=== PATIENT | male | born 1955 | race Caucasian/White ===

== ENCOUNTER → 2016-06-24 07:31 | Day surgery (SDC) | payer MEDICARE, MEDICAID ==
--- NOTE | 2016-06-11 07:20 | HP ---
HISTORY AND PHYSICAL: DATE OF PLANNED ADMISSION AND SURGERY: 06/24/16 - [facility] HISTORY OF PRESENT ILLNESS: Mr. Lino is a 61-year-old white male who is admitted with a left renal calculus and recent placement of a left ureteral stent for shockwave lithotripsy of the left renal calculus and possible removal of the left ureteral stent. Please refer to the detailed history and physical for his earlier admission of 06/05/16. At that time patient presented with symptoms of left renal colic secondary to an 8 mm calculus in the mid to distal left ureter. He was taken to the operating room and had a left ureteroscopy. During the procedure, the calculus migrated into the lower pole calyx of the kidney. A stent was placed. Postoperative KUB showed the stent in good position and the calculus in the lower pole calyx of the left kidney. The patient is now admitted for shockwave lithotripsy of the left renal calculus and if good fragmentation of the stone is noted, for removal of the left ureteral stent. There have not been changes in his medical condition or his medications or his physical exam. He was, however, asked to discontinue the Plavix one week prior to the procedure. I discussed the above plans in detail with the patient and all his questions were answered. [id number]/[facility] #: [id number] SHAHRIAR
[~2016-06-24 07:31] MED LIST: Buffered Lidocaine 1% SYR 3ML* 3 ML/SYR SYRINGE INTRADERM ONE; DiMENhydriNATE IV* 50 MG/ML VIAL IV PUSH PRN; Lidocaine 2% MPF* 2 ML VIAL ONE; Propofol* 10 MG/ML 20 ML BTL IV PUSH ONE; cefTRIAXone(*) 2 GM ADDV.VIAL IVPB ONE; fentaNYL* 50 MCG/ML 2 ML VIAL (100 MCG VIAL) IV PRN; fentaNYL* 50 MCG/ML 2 ML VIAL (100 MCG VIAL) ONE
--- NOTE | 2016-06-24 08:11 | RAD ---
INDICATION: Shockwave lithotripsy. COMPARISON: Comparison is made with a prior CT of the abdomen and pelvis from June 04, 2016 and a prior KUB series from June 05, 2016. TECHNIQUE: Frontal supine films of the abdomen were obtained. FINDINGS: The small bowel and colon appear nondistended. There is a double-J stent catheter present on the left side. There is a 7 mm calcification adjacent to the proximal portion of the double-J stent catheter which was previously located in the lower pole of the left kidney. IMPRESSION: THERE IS A 7 MM CALCULUS ADJACENT TO THE PROXIMAL PORTION OF THE DOUBLE-J STENT CATHETER LIKELY AT THE URETEROPELVIC JUNCTION OR IN THE PROXIMAL LEFT URETER.
[2016-06-24 11:21] VITALS: BP 118/71
--- NOTE | 2016-06-24 23:58 | OP ---
OPERATIVE REPORT: DATE OF OPERATION: 06/24/16 - [facility] DATE OF : 57 SURGEON: Damian Romo MD ANESTHESIOLOGIST: Dr. Han Winters. ANESTHESIA: General. PRE-OP DIAGNOSES: 1. Proximal left ureteral calculus. 2. Status post placement left ureteral stent. POST-OP DIAGNOSES: 1. Proximal left ureteral calculus. 2. Status post placement left ureteral stent. OPERATIVE PROCEDURE: Shockwave lithotripsy of left ureteral calculus. INDICATION FOR PROCEDURE: Mr. Lino is a 61-year-old white male who was admitted 3 weeks ago with a 1-cm calculus in the distal third of the left ureter. At that time the patient was on Plavix. He underwent left ureteroscopy and during the procedure, the stone migrated into the lower pole calyx of the left kidney. He had placement of left ureteral stent. Now, the patient is admitted for shockwave lithotripsy and stent removal. He has been off the Plavix for more than 1 week. PATHOLOGY: Preoperative KUB showed that the stone had migrated from the kidney into the proximal left ureter about 3 cm distal to the ureteropelvic junction. The stent was in good position. No other abnormal calcifications were noted. DESCRIPTION OF PROCEDURE: After successful general anesthesia, the patient was placed on the shockwave lithotripsy in the supine position. The left renal calculus was visualized in both the PA and the oblique x-ray views and the position of the generator and the patient were adjusted to have the stones in the focus of the shock waves. A total of 2,000 shocks were then delivered at a rate of 90 shocks per minute. The proper positioning of the generator over the stone was monitored periodically. At 2000 shocks, the stone did not seem to have broken. It was decided not to proceed with additional lithotripsy to avoid excessive edema of the ureteral wall. The plan would be to obtain a KUB next week and if the stone still does not seem to have fragmented, the patient will need to be brought back in for ureteroscopy and laser lithotripsy. CC: Nathaniel Ward MD* [id number]/[facility] #: [id number] MTDD
== END | disposition home or self-care (01) ==
LOC: OR 07:31
PROVIDERS: ATTEND Urology
DX: N20.1 Calculus of ureter (principal); Z79.02 Long term (current) use of antithrombotics/antiplatelets; Z79.82 Long term (current) use of aspirin; I25.10 Atherosclerotic heart disease of native coronary artery without angina pectoris; Z95.5 Presence of coronary angioplasty implant and graft; I10 Essential (primary) hypertension; J44.9 Chronic obstructive pulmonary disease, unspecified; F17.210 Nicotine dependence, cigarettes, uncomplicated; K21.9 Gastro-esophageal reflux disease without esophagitis; M19.90 Unspecified osteoarthritis, unspecified site; I25.2 Old myocardial infarction
CPT/HCPCS: 74000; J0696; J2704; J3010

== ENCOUNTER 2016-07-05 15:19 | Emergency (ER) | payer MEDICARE, MEDICAID ==
[2016-07-05] MEDS ORDERED: Ketorolac INJ* 30 MG/ML 1 ML VIAL IV PUSH ONE (16:04)
[2016-07-05] MEDS: NS 0.9% 1000 ML* 2,000 ML IV ONE (16:14)
[2016-07-05 16:27] LABS: Hematocrit 38 % (42-52); Hemoglobin 12.8 g/dl (14.0-18.0); Mean Corpuscular HGB Conc 33 g/dl (31-36); Mean Corpuscular Hemoglobin 29 pg (27-31); Mean Corpuscular Volume 86 fL (80-94); Mean Platelet Volume 10 um3 (7.4-10.4); Red Blood Count 4.45 10^6/ul (4.0-5.4); Red Cell Distribution Width 15 % (10.5-15); White Blood Count 6.3 10^3/ul (3.5-10.8)
[2016-07-05 16:41] LABS: Albumin 3.8 g/dL (3.2-5.2); BUN/Creatinine Ratio 18.6 (8-20); C Reactive Protein 3.12 mg/L (< 5.00); Calcium 8.9 mg/dL (8.6-10.3); EGFR African American 116.7 (>60); EGFR Non-African American 90.7 (>60); Globulin 2.6 g/dL (2-4); Potassium 3.5 mmol/L (3.5-5.0); Total Bilirubin 0.3 mg/dL (0.2-1.0); Total Protein 6.4 g/dL (6.4-8.9)
--- NOTE | 2016-07-05 16:48 | RAD ---
INDICATION: Abdominal pain COMPARISON: KUB July 01, 2016 TECHNIQUE: Erect and supine views of the abdomen are submitted. FINDINGS: Bones: There are no acute bony findings. Soft tissues: The soft tissues appear normal. The psoas margins are sharp. Bowel gas pattern: Normal Calcifications: There is a proximal left ureteral calculus, unchanged. The left ureteral stent appears unchanged. Other: None IMPRESSION: LEFT URETERAL STENT AND LEFT-SIDED URETEROLITHIASIS, UNCHANGED
[2016-07-05] MEDS ORDERED: Magnesium CITRATE* 300 ML BTL PO ONE (17:19)
[2016-07-05] MEDS ORDERED: Polyethylene Glycol 3350* 17 GM PACKET ONE (17:25)
[2016-07-05 18:07] LABS: Budding Yeast Present (Absent); Urine Bacteria Absent (Absent); Urine Bilirubin Negative (Negative); Urine Glucose Negative (Negative); Urine Nitrite Negative (Negative)
[2016-07-05 18:19] VITALS: BP 135/95
--- NOTE | 2016-07-05 19:21 | ED ---
Bonnie Mendez Erika, scribed for Yousuf Yang MD on 07/05/16 at 1601 . GI/ HPI - HPI Summary HPI Summary: Patient is a 61-year-old male presenting to the ED with a CC of burning with urination and increased frequency of urination. Patient has been diagnosed with a left-sided kidney stone, which will be removed by laser on 07/08/[address] Romo. Pt also reports hematuria. Pt denies fevers and chills. Pt does also report he has not had a BM in 4 days, and notes associated RLQ pain. Hx ureteral stent, 2 cardiac stents, 6 C-spine surgeries. Pt smokes, and does not drink. - History of Current Complaint Chief Complaint: EDUrogenitalProblems Time Seen by Provider: 07/05/16 15:57 Stated Complaint: BLOOD IN URINE/KIDNEY PAIN Hx Obtained From: Patient Onset/Duration: Started Days Ago, Atraumatic Severity: Moderate Pain Intensity: 9 Associated Signs and Symptoms: Positive: Constipation, UTI Symptoms. Negative: Fever Aggravating Factor(s): Urination Alleviating Factor(s): Nothing - Additional Pertinent History Primary Care Physician: [id number] - Allergy/Home Medications Allergies/Adverse Reactions: Allergies Allergy/AdvReac Type Severity Reaction Status Date / Time Bee Venom Allergy Swelling Verified 06/24/16 08:18 Of Face,Lips,& Throat PMH/Surg Hx/FS Hx/Imm Hx Endocrine/Hematology History: Denies: Hx Diabetes Cardiovascular History: Reports: Hx Angina - HAS NITRO TABS AVAILABLE, NOT NEEDED TO USE SINCE 2014, Hx Cardiomegaly, Hx Coronary Artery Disease - 2 STENTS , Hx Hypertension - ON MEDS Denies: Hx Hypercholesterolemia, Hx Myocardial Infarction, Hx Pacemaker/ICD, Hx Valvular Heart Disease Comment Only: Other Cardiovascular Problems/Disorders - [employer] SALESPERSON: MILANA KERR Respiratory History: Reports: Hx Asthma - WILL BRING INHALERS, Hx Chronic Obstructive Pulmonary Disease (COPD), Hx Sleep Apnea, Other Respiratory Problems /Disorders - 38 YRS+ SMOKER 1/2-1 PPD. WORKING HARD TO QUIT, NONE TODAY GI History: Reports: Hx Gastroesophageal Reflux Disease, Other GI Disorders - ROSALES'S ESOPHAGUS History: Reports: Hx Kidney Infection - A CHILD, Hx Kidney Stones - SURGERY 06/05/2016 (MANY PAST TIMES) Musculoskeletal History: Reports: Hx Arthritis - ALL OVER, Hx Back Problems, Other Musculoskeletal History - HERNIATED L5/S1, BILATERAL KNEE ISSUES, plate in neck Comment Only: Hx Bursitis - C 3/4 FUSION 2004, RIGHT L5/S1 HERNIATED DISCS Sensory History: Reports: Hx Contacts or Glasses - GLASSES Denies: Hx Cataracts, Hx Glaucoma, Hx Hearing Aid Opthamlomology History: Reports: Hx Contacts or Glasses - GLASSES Denies: Hx Cataracts, Hx Glaucoma Neurological History: Reports: Hx Nerve Disease - 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 CERVICAL FUSION WITH PLATING, 2003, 2004, 2005, 2006, 2014 [facility] HEART STENT, 2006, 08/2015 [facility]. URETURAL STENT 2007 - 4x- LAST 06/05/16 [facility]. LEFT KNEE ARTHROSCOPY, 2012, [facility] Hx Anesthesia Reactions: No Infectious Disease History: No Infectious Disease History: Denies: Hx of Known/Suspected MRSA, Hx Shingles, Hx Tuberculosis, Traveled Outside the [place] in Last 30 Days - Family History Known Family History: Positive: Cardiac Disease - Social History Alcohol Use: None Substance Use Type: Reports: None Hx Tobacco Use: Yes Smoking Status (MU): Heavy Every Day Tobacco Smoker Type: Cigarettes Amount Used/How Often: STATES HE IS DOWN TO 1/2PPD PAST FEW WEEKS, NONE SO FAR TODAY Length of Time of Smoking/Using Tobacco: 38 YRS Have You Smoked in the Last Year: Yes Review of Systems Negative: Fever, Chills Gastrointestinal: Other - No BM in 4 days Positive: burning, frequency, hematuria All Other Systems Reviewed And Are Negative: Yes Physical Exam - Summary Physical Exam Summary: VITAL SIGNS: Reviewed. GENERAL: Patient is a well developed and nourished male who is lying comfortable in the stretcher. Patient is not in any acute respiratory distress. HEAD AND FACE: Normocephalic and atraumatic. EYES: PERRLA, EOMI x 2, No injected conjunctiva. EARS: Hearing grossly intact. Ear canals and tympanic membranes are WNL. MOUTH: Oropharynx within normal limits. NECK: Supple, trachea is midline, no adenopathy, no JVD. CHEST: Symmetric, no tenderness at palpation LUNGS: Clear to auscultation bilaterally. No wheezing or crackles. CVS: RRR,, S1 and S2 present, no murmurs or gallops appreciated. ABDOMEN: Soft, non-tender. No signs of distention. Positive bowel sounds. No rebound no guarding, and no masses palpated. No abdominal bruit or pulsations. EXTREMITIES: FROM in all major joints, no edema, no cyanosis or clubbing. NEURO: Alert and oriented x 3. No acute neurological deficits. Speech is normal. SKIN: Dry and warm Triage Information Reviewed: Yes Vital Signs On Initial Exam: Initial Vitals Temp Pulse Resp BP Pulse Ox 98.1 F 74 16 164/70 99 07/05/16 15:24 07/05/16 15:24 07/05/16 15:24 07/05/16 15:24 07/05/16 15:24 Vital Signs Reviewed: Yes Diagnostics - Vital Signs Vital Signs Temp Pulse Resp BP Pulse Ox 07/05/16 15:24 98.1 F 74 16 164/70 99 - Laboratory Lab Results: Lab Results 07/05/16 07/05/16 07/05/16 Range/Units 16:15 16:15 16:15 WBC 6.3 (3.5-10.8) 10^3/ul RBC 4.45 (4.0-5.4) 10^6/ul Hgb 12.8 L (14.0-18.0) g/dl Hct 38 L (42-52) % MCV 86 (80-94) fL MCH 29 (27-31) pg MCHC 33 (31-36) g/dl RDW 15 (10.5-15) % Plt Count 110 L (150-450) 10^3/ul MPV 10 (7.4-10.4) um3 Neut % (Auto) 51.4 (38-83) % Lymph % (Auto) 36.6 (25-47) % Stan[place]aus % (Auto) 8.0 (1-9) % Eos % (Auto) 3.7 (0-6) % Baso % (Auto) 0.3 (0-2) % Absolute Neuts (auto) 3.2 (1.5-7.7) 10^3/ul Absolute Lymphs (auto) 2.3 (1.0-4.8) 10^3/ul Absolute Monos (auto) 0.5 (0-0.8) 10^3/ul Absolute Eos (auto) 0.2 (0-0.6) 10^3/ul Absolute Basos (auto) 0 (0-0.2) 10^3/ul Absolute Nucleated RBC 0.01 10^3/ul Nucleated RBC % 0.2 Sodium 139 (133-145) mmol/L Potassium 3.5 (3.5-5.0) mmol/L Chloride 107 (101-111) mmol/L Carbon Dioxide 26 (22-32) mmol/L Anion Gap 6 (2-11) mmol/L BUN 16 (6-24) mg/dL Creatinine 0.86 (0.67-1.17) mg/dL Est GFR ( Amer) 116.7 (>60) Est GFR (Non-Af Amer) 90.7 (>60) BUN/Creatinine Ratio 18.6 (8-20) Glucose 158 H (70-100) mg/dL Lactic Acid 1.4 (0.5-2.0) mmol/L Calcium 8.9 (8.6-10.3) mg/dL Total Bilirubin 0.30 (0.2-1.0) mg/dL AST 21 (13-39) U/L ALT 25 (7-52) U/L Alkaline Phosphatase 53 (34-104) U/L C-Reactive Protein 3.12 (< 5.00) mg/L B-Natriuretic Peptide ( - 100) pg/mL Total Protein 6.4 (6.4-8.9) g/dL Albumin 3.8 (3.2-5.2) g/dL Globulin 2.6 (2-4) g/dL Albumin/Globulin Ratio 1.5 (1-3) Lipase 26 (11.0-82.0) U/L 07/05/16 Range/Units 16:15 WBC (3.5-10.8) 10^3/ul RBC (4.0-5.4) 10^6/ul Hgb (14.0-18.0) g/dl Hct (42-52) % MCV (80-94) fL MCH (27-31) pg MCHC (31-36) g/dl RDW (10.5-15) % Plt Count (150-450) 10^3/ul MPV (7.4-10.4) um3 Neut % (Auto) (38-83) % Lymph % (Auto) (25-47) % Stanislaus % (Auto) (1-9) % Eos % (Auto) (0-6) % Baso % (Auto) (0-2) % Absolute Neuts (auto) (1.5-7.7) 10^3/ul Absolute Lymphs (auto) (1.0-4.8) 10^3/ul Absolute Monos (auto) (0-0.8) 10^3/ul Absolute Eos (auto) (0-0.6) 10^3/ul Absolute Basos (auto) (0-0.2) 10^3/ul Absolute Nucleated RBC 10^3/ul Nucleated RBC % Sodium (133-145) mmol/L Potassium (3.5-5.0) mmol/L Chloride (101-111) mmol/L Carbon Dioxide (22-32) mmol/L Anion Gap (2-11) mmol/L BUN (6-24) mg/dL Creatinine (0.67-1.17) mg/dL Est GFR ( Amer) (>60) Est GFR (Non-Af Amer) (>60) BUN/Creatinine Ratio (8-20) Glucose (70-100) mg/dL Lactic Acid (0.5-2.0) mmol/L Calcium (8.6-10.3) mg/dL Total Bilirubin (0.2-1.0) mg/dL AST (13-39) U/L ALT (7-52) U/L Alkaline Phosphatase (34-104) U/L C-Reactive Protein (< 5.00) mg/L B-Natriuretic Peptide 173 H ( - 100) pg/mL Total Protein (6.4-8.9) g/dL Albumin (3.2-5.2) g/dL Globulin (2-4) g/dL Albumin/Globulin Ratio (1-3) Lipase (11.0-82.0) U/L Result Diagrams: 07/05/16 16:15 07/05/16 16:15 Lab Statement: Any lab studies that have been ordered have been reviewed, and results considered in the medical decision making process. - Radiology Abd XR Radiology Interpretation Completed By: Radiologist - IMPRESSION: LEFT URETERAL STENT AND LEFT-SIDED URETEROLITHIASIS, UNCHANGED GIGU Course/Dx - Course Assessment/Plan: Patient is a 61-year-old male presenting to the ED with a CC of burning with urination and increased frequency of urination. Patient has been diagnosed with a left-sided kidney stone, which will be removed by laser on 07/08/[address] Romo. Pt also reports hematuria. Pt denies fevers and chills. Pt does also report he has not had a BM in 4 days, and notes associated RLQ pain. Blood work wnl except for slight decrease in the H/H. Abdominal x ray: shows a left ureteral stent and left sided ureterolithiasis unchanged. UA : 2+ protein, 3+ blood. It does not show a UTI however we will send for urine cultures. He was hydrated with approximately 2 liters of water. He was given Lactulose, magnesium citrate and miralax for constipation. I discussed the case with Dr. Casas form Urology and he reports that it's not unusual to have hematuria after a stent placement. He recommends for the patient to be discharged home and follow up with Dr. Romo on Wednesday for his lithotripsy. I discussed all my findings and test results with the patient. Patient understands and agrees. Patient was instructed to return to the emergency room immediately if any of the symptoms return or worsens. Patient understands and agrees. Plan of care was discussed with the patient and patient understands and agrees with the plan of care. All questions were answered at patient satisfaction. There were no further complaints or concerns. Patient was instructed to follow up with primary care physician within 3 to 5 days. Patient is hemodynamically stable. Patient is alert and oriented x 3. No acute neurological deficits. - Diagnoses Differential Diagnoses - Male: Renal Calculi, Renal Colic, Ureteral Calculi, Urethritis, Urinary Tract Infection Provider Diagnoses: Ureter colic, Ureterolithiasis, Hematuria, Constipation - Physician Notifications Discussed Care Of Patient With: Dr. Casas (urology) at 19:09 - discussed patient 's history and plan of care Discharge - Discharge Plan Condition: Stable Disposition: HOME Prescriptions: Magnesium Hydroxide LIQ* [Milk of Magnesia LIQ*] 30 ml PO BID PRN #1 [id number] PRN Reason: Constipation Patient Education Materials: Renal Colic (ED), Hematuria (ED), Constipation (ED ) Referrals: Nathaniel Ward MD [Primary Care Provider] - The documentation as recorded by the Bonnie handley Erika accurately reflects the service I personally performed and the decisions made by me, Yousuf Yang MD.
[2016-07-05] MEDS ORDERED: Polyethylene Glycol 3350* 17 GM PACKET PO SCH (21:00)
== END 2016-07-05 19:38 | disposition home or self-care (01) ==
LOC: ED 15:19
DX: N20.1 Calculus of ureter (principal); R31.9 Hematuria, unspecified; K59.00 Constipation, unspecified; J44.9 Chronic obstructive pulmonary disease, unspecified; J45.909 Unspecified asthma, uncomplicated; F17.210 Nicotine dependence, cigarettes, uncomplicated
CPT/HCPCS: 36415; 74020; 80053; 81003; 81015; 83605; 83690; 83880; 85025; 86140; 87040; 87086; 96360; 96374; 99283; A9270-GY; J1885

== ENCOUNTER → 2016-07-08 06:16 | Day surgery (SDC) | payer MEDICARE, MEDICAID ==
--- NOTE | 2016-07-02 08:26 | HP ---
HISTORY AND PHYSICAL: DATE OF PLANNED ADMISSION AND SURGERY: 07/08/16 HISTORY OF PRESENT ILLNESS: Mr. Lino is a 61-year-old white male who is admitted with a left ureteral calculus, status post placement of left ureteral stent for cystoscopy, left ureteroscopy, laser lithotripsy and left ureteral stent exchange. Please refer to the detailed history and physical for this patient's admission on 06/24/16. There has not been any changes in his medical condition. The patient was admitted on that day for shockwave lithotripsy of a left ureteral calculus. KUB following the procedure showed that this stone has not fragmented. It still is located in the proximal ureter adjacent to the ureteral stent. Because of that finding and the failure of the shockwave lithotripsy to fragment the stone, the patient is admitted for the above procedure. There has not been any changes in his medical condition. The patient has been back on the Plavix since his last visit. No other changes. I discussed the above plans in detail with the patient and all his questions were answered. [id number]/[facility] #: [id number] SHAHRIAR
--- NOTE | 2016-07-06 11:11 | HP ---
DATE OF ADMISSION: 07/08/2016. HISTORY OF PRESENT ILLNESS: Mr. Lino is a 61-year-old, white male who is admitted with a left ureteral calculus, status post placement of left ureteral stent for cystoscopy, left ureteroscopy, laser lithotripsy and left ureteral stent exchange. Mr. Lino is a known stone former and he was admitted on 06/05/2016 with an 8 mm calculus in the distal third of the left ureter. He underwent a left ureteroscopy and during the procedure the stone migrated into the left kidney. He had a stent placed. The stone migrated into the proximal left ureter. He was then taken to the operating room on 06/24/2016 and underwent shockwave lithotripsy of the calculus. Postoperative KUB showed no fragmentation of the stone. The patient is now admitted for the above procedure. PAST MEDICAL HISTORY/SYSTEM REVIEW: The patient has history of coronary artery disease and had an inferior wall ischemia with placement of a stent in the RCA ten months ago by Dr. Coy. He was seen by Dr. Coy since that time and he cleared him for anesthesia for his procedure in October 2015. He has been doing relatively well. He has not had any recurrent cardiac symptoms. PAST SURGICAL HISTORY: He has a history of back pain and had a disk excision by Dr. Kebede at the L5-S1 level in November 2015. MEDICATIONS: The patient is maintained on Metoprolol 25 mg twice a day and on Plavix daily. ALLERGIES: He has no allergies to medications. PHYSICAL EXAMINATION GENERAL: Pleasant, white male who looks older than his age. VITAL SIGNS: Blood pressure 120/80, pulse 70. LUNGS: Clear. HEART: Regular and rhythmic, no murmurs. ABDOMEN: Soft, no masses, no tenderness. There is mild left CVA tenderness. EXTERNAL GENITALIA: Normal. RECTAL: Exam had shown a slightly enlarged, but non-suspicious prostate. IMPRESSION: 1. Proximal left ureteral calculus, status post placement of left ureteral stent and failed shockwave lithotripsy. 2. Coronary artery disease. PLAN: Cystoscopy, left ureteroscopy, laser lithotripsy and left ureteral stent exchange. The patient is on Plavix and he was asked to continue on it for this procedure. [id number]/[facility] #: [id number] [facility]
[~2016-07-08 06:16] MED LIST changes: +Acetaminophen TAB* 325 MG PO PRN; +Buffered Lidocaine 1% SYR 3ML* 3 ML/SYR SYRINGE ONE; +Dexamethasone IV* 4 MG/ML 1 ML (4 MG) ONE; +Famotidine IV* 10 MG/ML 2 ML (20 mg) IV ONE; +Famotidine IV* 10 MG/ML 2 ML (20 mg) ONE; +Iohexol 180 (CONTRAST) 10 ML SDV IV ONE; +Ketorolac INJ* 30 MG/ML 1 ML VIAL ONE; +Midazolam* 1 MG/ML 5 ML VIAL (5 MG) ONE; +Ondansetron INJ* 2 MG/ML VIAL ONE; +oxyCODONE/Acetamin 5/325 MG* TAB ONE
[2016-07-08] MEDS: oxyCODONE/Acetamin 5/325 MG* TAB PO PRN ×2 (09:20→09:21)
--- NOTE | 2016-07-08 09:45 | RAD ---
CPT II Codes: 6045F INDICATION: Left ureteral stent exchange in a patient with left ureteral calculus. TECHNIQUE: Intraoperative fluoroscopy was provided during left ureter stent exchange. FINDINGS: 9 spot films depict retrograde wire cannulation of previously placed left ureteral stent with replacement of an anatomically aligned new left ureteral stent. Fluoroscopy time: 11 seconds IMPRESSION: As above.
[2016-07-08 10:06] VITALS: BP 117/76
--- NOTE | 2016-07-08 12:42 | OP ---
DATE OF OPERATION: 07/08/16 [facility] DATE OF : 57 SURGEON: Damian Romo MD ANESTHESIOLOGIST: Tosin Mcclendon MD ANESTHESIA: General. PRE-OP DIAGNOSES: 1. Proximal left ureteral calculus (1 cm). 2. Status post placement of left ureteral stent. POST-OP DIAGNOSES: 1. Proximal left ureteral calculus (1 cm). 2. Status post placement of left ureteral stent. OPERATIVE PROCEDURE: 1. Cystoscopy, left ureteroscopy, and laser lithotripsy of left ureteral calculus. 2. Left retrograde pyelography and placement of left ureteral stent. INDICATIONS: Mr. Lino is a 61-year-old white male who developed a left renal colic secondary to a 1-cm calculus in the left ureter. He had a stent placed. The calculus was in the proximal ureter. He underwent shockwave lithotripsy of the calculus about 10 days ago; however, the stone did not break. The patient is now brought in for the above procedure. PATHOLOGY AT FLUOROSCOPY: The left ureteral stent was in good position. A radiopaque calculus measuring 1 cm was noted in the proximal left ureter. Upon left ureteroscopy, the calculus was noted in the proximal ureter. It had the gross appearance of a calcium oxalate stone. There was edema of the ureteral mucosa around the stone. The stone was impacted. DESCRIPTION OF PROCEDURE: After successful general anesthesia, the patient was placed in the dorsal lithotomy position and was prepped and draped in the usual manner. Cystoscopy was performed. The left ureteral stent was pulled out over a guidewire and the guidewire was positioned in the renal pelvis. A 6.5 semi-rigid ureteroscope was then introduced under direct vision inside the bladder. A flexible-tip basket was then introduced through the port of the ureteroscope and its tip was passed inside the left ureter and acted as a guide to introduce the ureteroscope all the way up to the level of the stone. The basket was then introduced under direct vision beyond the stone and was deployed and the stone was engaged within the basket preventing its proximal migration. Using a 550 micron laser fiber that was introduced through the other port of the ureteroscope, the stone was broken in half in 2 pieces. Care was taken during the lasering not to damage the ureteral wall. Each fragment was then extracted separately. Final ureteroscopy showed no evidence of any ureteral wall injury and no residual fragments noted. Retrograde pyelography was then performed and a 6-Luxembourgish stent was then placed with the proximal end coiling in the renal pelvis and the distal end coiling inside the bladder. There was no evidence of any extravasation of contrast at the ureteroscopy site. A size 16-Luxembourgish Young catheter was then placed. The patient tolerated the procedure well and left the operating room in good condition. The plan is to bring the patient to the office next week and the stent will be removed. CC: Dr. Ward* [id number]/[facility] #: [id number]
== END | disposition home or self-care (01) ==
LOC: OR 06:16
PROVIDERS: ATTEND Urology
DX: N20.1 Calculus of ureter (principal); I25.10 Atherosclerotic heart disease of native coronary artery without angina pectoris; Z79.01 Long term (current) use of anticoagulants; Z95.818 Presence of other cardiac implants and grafts; F17.200 Nicotine dependence, unspecified, uncomplicated
CPT/HCPCS: 76001; 82365; 88300; A9270-GY; C1876; J0696; J1100; J1885; J2250; J2405; J2704; J3010

== ENCOUNTER 2017-08-21 09:39 | Emergency (ER) | payer MEDICARE, MEDICAID ==
[2017-08-21] MEDS ORDERED: Morphine INJ* 4 MG/ML 1 ML CARPUJECT IV ONE (10:26)
[2017-08-21] MEDS ORDERED: Morphine INJ* 2 MG/ML 1 ML CARPUJECT ONE (10:31)
[2017-08-21 10:39] LABS: ABS Basophils 0 10^3/ul (0-0.2); ABS Eosinophils 0.1 10^3/ul (0-0.6); ABS Lymphocytes 2.1 10^3/ul (1.0-4.8); ABS Monocytes 0.5 10^3/ul (0-0.8); ABS Neutrophils 3.6 10^3/ul (1.5-7.7); ABS Nucleated RBC 0 10^3/ul; Eosinophil % 2.1 % (0-6); Hematocrit 42 % (42-52); Lymphocyte % 32.9 % (25-47); Mean Corpuscular HGB Conc 34 g/dl (31-36); Mean Corpuscular Hemoglobin 29 pg (27-31); Mean Corpuscular Volume 88 fL (80-94); Mean Platelet Volume 11 um3 (7.4-10.4); Nucleated Red Blood Cells % 0; Platelet Count 116 10^3/ul (150-450); Red Blood Count 4.75 10^6/ul (4.0-5.4); Red Cell Distribution Width 15 % (10.5-15); White Blood Count 6.3 10^3/ul (3.5-10.8)
[2017-08-21 10:44] LABS: INR 0.98 (0.77-1.02)
[2017-08-21 10:53] LABS: EGFR Non-African American 99.7 (>60)
--- NOTE | 2017-08-21 11:01 | RAD ---
HISTORY: Chest pain COMPARISONS: December 30, 2015 VIEWS: 1: frontal portable view of the chest at 10:45 AM FINDINGS: LINES AND TUBES: None. CARDIOMEDIASTINAL SILHOUETTE: The cardiomediastinal silhouette is normal for portable technique. PLEURA: The costophrenic angles are sharp. No pleural abnormalities are noted. LUNG PARENCHYMA: The lungs are clear. ABDOMEN: The upper abdomen is clear. There is no subphrenic gas. BONES AND SOFT TISSUES: The patient is status post anterior cervical fusion IMPRESSION: NO ACTIVE CARDIOPULMONARY DISEASE.
[2017-08-21 15:31] VITALS: BP 106/75
--- NOTE | 2017-08-21 15:36 | ED ---
Lenny Mendez Stephanie, scribed for Johnathan Fu MD on 08/21/17 at 1024 . HPI Chest Pain - HPI Summary HPI Summary: The pt is a 62 y/o M presenting to the ED with c/o CP that began at 02:30 today. Symptoms include palpitations, SOB, numbness in hands and fingers bilaterally. The pt describes the CP as sharp and woke him up from sleep. The pt denies LE edema bilaterally and pain upon breathing. The pt states his pain has decreased since onset however it is no longer sharp but it steady. The pt took nitroglycerine, metoprolol and aspirin this morning. The pt states he has a hx of HI in 2006. - History of Current Complaint Chief Complaint: EDChestPainROMI Time Seen by Provider: 08/21/17 09:52 Hx Obtained From: Patient Onset/Duration: Started Hours Ago - 8, Still Present Timing: Constant Current Severity: Moderate Pain Intensity: 8 Pain Scale Used: 0-10 Numeric Chest Pain Location: Left Anterior Chest Pain Radiates: No Character: Sharp/Stabbing Aggravating Factor(s): Nothing Alleviating Factor(s): Nothing Associated Signs and Symptoms: Positive: Chest Pain, Numbness - hands and fingers bilaterally, Shortness of Breath, Palpitations - Additional Pertinent History Primary Care Physician: [id number] - Allergy/Home Medications Allergies/Adverse Reactions: Allergies Allergy/AdvReac Type Severity Reaction Status Date / Time MS Bee Venom [Bee Venom] Allergy Swelling Verified 07/06/16 08:31 Of Face,Lips,& Throat Home Medications: Home Medications Albuterol 2.5MG/3ML (0.083%)* [Ventolin 2.5 MG/3 ML NEB.CARMELLA*] 2.5 mg INH Q6H PRN 08/21/17 [History Confirmed 08/21/17] EPINEPHrine [Epipen 2-Emerson] 0.3 mg IM ONCE PRN 08/21/17 [History Confirmed ] Esomeprazole(NF) [NexIUM(NF)] 40 mg PO DAILY 08/21/17 [History Confirmed ] Metoprolol Tartrate TAB* [Lopressor TAB*] 25 mg PO BID 08/21/17 [History Confirmed 08/21/17] Oxymorphone (NF) [Opana (NF)] 10 mg PO QID PRN 08/21/17 [History Confirmed 08/21] Rosuvastatin (NF) [Crestor] 40 mg PO DAILY 08/21/17 [History Confirmed 08/21/17] PMH/Surg Hx/FS Hx/Imm Hx Endocrine/Hematology History: Denies: Hx Diabetes Cardiovascular History: Reports: Hx Angina - HAS NITRO TABS AVAILABLE, NOT NEEDED TO USE SINCE 2014, Hx Cardiomegaly, Hx Coronary Artery Disease - 2 STENTS , Hx Hypertension - ON MEDS Denies: Hx Hypercholesterolemia, Hx Myocardial Infarction, Hx Pacemaker/ICD, Hx Valvular Heart Disease Comment Only: Other Cardiovascular Problems/Disorders - FABRICATION MANAGER: MILANA KERR Respiratory History: Reports: Hx Asthma - WILL BRING INHALERS, Hx Chronic Obstructive Pulmonary Disease (COPD), Hx Sleep Apnea, Other Respiratory Problems /Disorders - 38 YRS+ SMOKER 1/2-1 PPD. WORKING HARD TO QUIT, NONE TODAY GI History: Reports: Hx Gastroesophageal Reflux Disease, Other GI Disorders - ROSALES'S ESOPHAGUS History: Reports: Hx Kidney Infection - A CHILD, Hx Kidney Stones - SURGERY 06/05/2016 (MANY PAST TIMES) Denies: Hx Renal Disease Musculoskeletal History: Reports: Hx Arthritis - ALL OVER, Hx Back Problems, Other Musculoskeletal History - HERNIATED L5/S1, BILATERAL KNEE ISSUES, plate in neck Comment Only: Hx Bursitis - C 3/4 FUSION 2004, RIGHT L5/S1 HERNIATED DISCS Sensory History: Reports: Hx Contacts or Glasses - GLASSES Denies: Hx Cataracts, Hx Glaucoma, Hx Hearing Aid Opthamlomology History: Reports: Hx Contacts or Glasses - GLASSES Denies: Hx Cataracts, Hx Glaucoma Neurological History: Reports: Hx Nerve Disease - 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 CERVICAL FUSION WITH PLATING, 2003, 2004, 2005, 2006, 2014 [facility] [place] HEART STENT, 2006 (liberte stent), 08/2015 ([facility] [place]. URETURAL STENT 2007 - 4x- LAST 06/05/16 [facility] [place]. LEFT KNEE ARTHROSCOPY, 2012, [facility] [place]. 12/2015 - LUMBAR DISKECTOMY L5-S1 Hx Anesthesia Reactions: No Infectious Disease History: No Infectious Disease History: Denies: Hx of Known/Suspected MRSA, Hx Shingles, Hx Tuberculosis, Traveled Outside the [place] in Last 30 Days - Family History Known Family History: Positive: Cardiac Disease, Other - Coronary Artery Disease - Social History Occupation: Retired Lives: With Family Alcohol Use: None Substance Use Type: Reports: None Hx Tobacco Use: Yes Smoking Status (MU): Heavy Every Day Tobacco Smoker Type: Cigarettes Amount Used/How Often: STATES HE IS DOWN TO 1/2PPD PAST FEW WEEKS, NONE SO FAR TODAY Length of Time of Smoking/Using Tobacco: 38 YRS Have You Smoked in the Last Year: Yes Review of Systems Negative: Fever Positive: Palpitations, Chest Pain Positive: Shortness Of Breath, Other - Negative: pain with breathing Positive: Edema - Negative: LE edema Positive: Numbness - hands and fingers bilaterally All Other Systems Reviewed And Are Negative: Yes Physical Exam - Summary Physical Exam Summary: Appearance: The patient is well-nourished in no acute distress and in no acute pain. Skin: The skin is warm and dry and skin color reflects adequate perfusion. HEENT: The head is normocephalic and atraumatic. The pupils are equal and reactive. The conjunctivae are clear and without drainage. Nares are patent and without drainage. Mouth reveals moist mucous membranes and the throat is without erythema and exudate. The external ears are intact. The ear canals are patent and without drainage. The tympanic membranes are intact. Neck: the neck is supple with full range of motion and non-tender. There are no carotid bruits. There is no neck vein distension. Respiratory: Chest is non-tender. Lungs are clear to auscultation and breath sounds are symmetrical and equal. Cardiovascular: ecchymosis in L posterior axillary line mid-chest, heart is irregular, not tachycardic. There is no murmur or rub auscultated. There is no peripheral edema and pulses are symmetrical and equal. Abdomen: The abdomen is soft and non-tender. There are normal bowel sounds heard in all four quadrants and there is no organomegaly palpated. Musculoskeletal: There is no back tenderness noted. Extremities are non-tender with full range of motion. There is good capillary refill. There is no peripheral edema or calf tenderness elicited. Neurological: Patient is alert and oriented to person, place and time. The patient has symmetrical motor strength in all four extremities. Cranial nerves are grossly intact. Deep tendon reflexes are symmetrical and equal in all four extremities. Psychiatric: The patient has an appropriate affect and does not exhibit any anxiety or depression. Triage Information Reviewed: Yes Vital Signs On Initial Exam: Initial Vitals Temp Pulse Resp BP Pulse Ox 97.3 F 107 15 138/81 98 08/21/17 09:42 08/21/17 09:42 08/21/17 09:42 08/21/17 09:42 08/21/17 09:42 Vital Signs Reviewed: Yes Diagnostics - Vital Signs Vital Signs Temp Pulse Resp BP Pulse Ox 08/21/17 10:02 97 F 103 18 121/71 97 08/21/17 10:00 85 08/21/17 09:42 97.3 F 107 15 138/81 98 - Laboratory Lab Results: Lab Results 08/21/17 08/21/17 08/21/17 Range/Units 10:20 10:20 10:20 WBC 6.3 (3.5-10.8) 10^3/ul RBC 4.75 (4.0-5.4) 10^6/ul Hgb 14.0 (14.0-18.0) g/dl Hct 42 (42-52) % MCV 88 (80-94) fL MCH 29 (27-31) pg MCHC 34 (31-36) g/dl RDW 15 (10.5-15) % Plt Count 116 L (150-450) 10^3/ul MPV 11 H (7.4-10.4) um3 Neut % (Auto) 57.1 (38-83) % Lymph % (Auto) 32.9 (25-47) % Keith % (Auto) 7.4 H (0-7) % Eos % (Auto) 2.1 (0-6) % Baso % (Auto) 0.5 (0-2) % Absolute Neuts (auto) 3.6 (1.5-7.7) 10^3/ul Absolute Lymphs (auto) 2.1 (1.0-4.8) 10^3/ul Absolute Monos (auto) 0.5 (0-0.8) 10^3/ul Absolute Eos (auto) 0.1 (0-0.6) 10^3/ul Absolute Basos (auto) 0 (0-0.2) 10^3/ul Absolute Nucleated RBC 0 10^3/ul Nucleated RBC % 0 INR (Anticoag Therapy) (0.77-1.02) Sodium 140 (133-145) mmol/L Potassium 4.1 (3.5-5.0) mmol/L Chloride 108 (101-111) mmol/L Carbon Dioxide 26 (22-32) mmol/L Anion Gap 6 (2-11) mmol/L BUN 16 (6-24) mg/dL Creatinine 0.79 (0.67-1.17) mg/dL Est GFR ( Amer) 128.2 (>60) Est GFR (Non-Af Amer) 99.7 (>60) BUN/Creatinine Ratio 20.3 H (8-20) Glucose 146 H (70-100) mg/dL Lactic Acid (0.5-2.0) mmol/L Calcium 9.5 (8.6-10.3) mg/dL Magnesium 2.0 (1.9-2.7) mg/dL Total Bilirubin 0.40 (0.2-1.0) mg/dL AST 23 (13-39) U/L ALT 23 (7-52) U/L Alkaline Phosphatase 52 (34-104) U/L Troponin I 0.02 (<0.04) ng/mL B-Natriuretic Peptide 234 H ( - 100) pg/mL Total Protein 6.9 (6.4-8.9) g/dL Albumin 4.1 (3.2-5.2) g/dL Globulin 2.8 (2-4) g/dL Albumin/Globulin Ratio 1.5 (1-3) TSH 0.68 (0.34-5.60) mcIU/mL 08/21/17 08/21/17 08/21/17 Range/Units 10:20 10:20 13:41 WBC (3.5-10.8) 10^3/ul RBC (4.0-5.4) 10^6/ul Hgb (14.0-18.0) g/dl Hct (42-52) % MCV (80-94) fL MCH (27-31) pg MCHC (31-36) g/dl RDW (10.5-15) % Plt Count (150-450) 10^3/ul MPV (7.4-10.4) um3 Neut % (Auto) (38-83) % Lymph % (Auto) (25-47) % Keith % (Auto) (0-7) % Eos % (Auto) (0-6) % Baso % (Auto) (0-2) % Absolute Neuts (auto) (1.5-7.7) 10^3/ul Absolute Lymphs (auto) (1.0-4.8) 10^3/ul Absolute Monos (auto) (0-0.8) 10^3/ul Absolute Eos (auto) (0-0.6) 10^3/ul Absolute Basos (auto) (0-0.2) 10^3/ul Absolute Nucleated RBC 10^3/ul Nucleated RBC % INR (Anticoag Therapy) 0.98 (0.77-1.02) Sodium (133-145) mmol/L Potassium (3.5-5.0) mmol/L Chloride (101-111) mmol/L Carbon Dioxide (22-32) mmol/L Anion Gap (2-11) mmol/L BUN (6-24) mg/dL Creatinine (0.67-1.17) mg/dL Est GFR ( Amer) (>60) Est GFR (Non-Af Amer) (>60) BUN/Creatinine Ratio (8-20) Glucose (70-100) mg/dL Lactic Acid 0.9 (0.5-2.0) mmol/L Calcium (8.6-10.3) mg/dL Magnesium (1.9-2.7) mg/dL Total Bilirubin (0.2-1.0) mg/dL AST (13-39) U/L ALT (7-52) U/L Alkaline Phosphatase (34-104) U/L Troponin I 0.03 (<0.04) ng/mL B-Natriuretic Peptide ( - 100) pg/mL Total Protein (6.4-8.9) g/dL Albumin (3.2-5.2) g/dL Globulin (2-4) g/dL Albumin/Globulin Ratio (1-3) TSH (0.34-5.60) mcIU/mL Result Diagrams: 08/21/17 10:20 08/21/17 10:20 Lab Statement: Any lab studies that have been ordered have been reviewed, and results considered in the medical decision making process. - Radiology CXR Xray Interpretation: No Acute Changes Radiology Interpretation Completed By: Radiologist - NO ACTIVE CARDIOPULMONARY DISEASE. - EKG 09:54 Cardiac Rate: NL EKG Rhythm: Atrial Fibrillation - [address] Segment: Non-Specific Ectopy: None EKG Interpretation: rapid ventricular response, [facility] EKG Comparison: Other - A-fib is new in comparison to 10/10/15, [facility] Chest Pain Course/Dx - Course Course Of Treatment: Mr. Lino reports that he has been having left sided chest pain for quite some time. It is intermittent and he says he is being W/U' d for it by Dr. Romero and has an appt. on the . This AM he was awakened about 0330 by the same pain which was severe. He took ASA and NTG which did not affect the pain at all. He says he may have sleep apnea but doesn't use O2. When he arrived , he was noted to be in A-Fib with RVR of about 125. He says he has never heard the term Atrial Fib and is not on a blood thinner other than ASA. Looking back through old ECGs, I noticed that we have one with A-Fib from . The records from then show that he was in A-Fib with RVR and chest pain and that he got transferred to [facility]. His initial trop here was 0.02 and his CP had improved significantly. He remained in A-Fib but his rate normalized on its own. I spoke with Dr. Sánchez who felt that he could go home if a delayed trop was not significantly elevated. He remained stable here and his repeat trop was 0.03. He ambulated around the department without any change in his ( now) mild CP. I offered him admission to be on the safe side until we could get some of the unknowns from his story sorted out but he wanted to go home. He will call Dr. Romero on Wednesday AM and return for any worsening of his symptoms. - Diagnoses Provider Diagnoses: Chest pain, Atrial fibrillation Discharge - Discharge Plan Condition: Stable Disposition: HOME Patient Education Materials: A-fib (Atrial Fibrillation) (ED), Chest Pain (ED) Referrals: Nathaniel Ward MD [Primary Care Provider] - 3 Days Flynn Quintana MD [Medical Doctor] - 2 Days Additional Instructions: Follow up with your counter intelligence technician on Wednesday08/23/17. The documentation as recorded by the Lenny handley Stephanie accurately reflects the service I personally performed and the decisions made by me, Johnathan Fu MD.
== END 2017-08-21 15:29 | disposition home or self-care (01) ==
LOC: ED 09:39
DX: R07.9 Chest pain, unspecified (principal); I48.91 Unspecified atrial fibrillation; F17.210 Nicotine dependence, cigarettes, uncomplicated
CPT/HCPCS: 36415; 71045; 80053; 83605; 83735; 83880; 84443; 84484; 85025; 85610; 93005; 96374; 96376; 99283; J2270